=== PATIENT | male | born 1985 | race Caucasian/White ===

== ENCOUNTER 2017-02-12 13:09 | Emergency (ER) | payer OTHER ==
[~2017-02-12] VITALS: Ht 182.9 cm; Wt 73.6 kg
[2017-02-12 13:11] VITALS: BP 129/91; PULSE 64; RESP 15; O2SAT 100
[2017-02-12 13:51] LABS: BASOPHILS % (AUTO) 0.5 % (0-3); MONOCYTES % (AUTO) 11.6 % (4-12); Mean Corpuscular Hemoglobin 31.4 pg (27.0-35.0); Mean Corpuscular Volume 88.1 fL (81-100); NEUTROPHILS % (AUTO) 69.2 % (40-74); Platelet Count 226 bil/L (150-400)
[2017-02-12 14:09] LABS: Magnesium 2.1 mg/dL (1.6-2.6)
== END 2017-02-12 15:18 | disposition left against medical advice (07) ==
LOC: SED 13:09
DX: R10.9 Unspecified abdominal pain (principal); Z53.1 Procedure and treatment not carried out because of patient's decision for reasons of belief and group pressure